=== PATIENT | male | born 1955 | race African-American/Black ===

== ENCOUNTER → 2018-05-24 | Outpatient (CLI) | payer MEDICAID ==
[~2018-05-24] MED LIST: ALLO300T2; DILT360T11; FURO-151; SPIR25TA
[2018-05-24 10:12] LABS: BASOPHILS % 0.4 % (0.0-2.0); EOSINOPHILS % 3.1 % (0.0-5.0); HEMATOCRIT. 42.3 % (42.0-52.0); HEMOGLOBIN. 14.3 g/dL (14.0-18.0); LYMPHOCYTES % 36.4 % (20.0-50.0); MEAN CORPUSCULAR HEMOGLOBIN 31.4 pg (28.0-32.0); MEAN CORPUSCULAR VOLUME 92.9 fL (80.0-94.0); MEAN PLATELET VOLUME 8.2 fl (7.4-10.4); MONOCYTES % 14.3 % (2.0-8.0); NEUTROPHILS % 45.8 % (40.0-76.0); PLATELET 155 x1000/uL (130-400); RED BLOOD CELL COUNT 4.55 mill/uL (4.7-6.1)
[2018-05-24 10:52] LABS: CHLORIDE 109 mEq/L (98-107)
[2018-05-24 11:03] LABS: LDL CHOLESTEROL 143 mg/dL (5-100); T4 FREE 0.93 ng/dL (0.76-1.46)
[2018-05-24 11:05] LABS: HDL CHOLESTEROL 38 mg/dL (40-59)
== END | disposition home or self-care (01) ==
LOC: LAB 09:45
PROVIDERS: ATTEND Specialist
DX: I11.9 Hypertensive heart disease without heart failure (principal); E55.9 Vitamin D deficiency, unspecified; E78.2 Mixed hyperlipidemia
CPT/HCPCS: 36415; 80053; 80061; 82607; 82728; 82746; 83036; 84439; 84443; 84481; 85025